=== PATIENT | male | born 1945 | race African-American/Black ===

== ENCOUNTER 2017-05-07 12:37 | Emergency (ER) | payer OTHER, MEDICAID ==
[~2017-05-07] VITALS: Ht 182.9 cm; Wt 90.0 kg
[~2017-05-07 12:37] MED LIST: AMLO2.5T45 PO; ASPI-1159 PO; CLOP75TA33 PO; CYCL10TA7 PO; FERR-63 PO; FINA5TAB11 PO; INSU3INS6 SUBCUT; INSULIN; METF10002 PO; METO25TA6 PO; NAPR-677 PO; OMEP20CA10 PO; SILD20TA PO; SIMV20TA6 PO; TAMS0.4C31 PO
[2017-05-07 14:26] LABS: BASOPHILS % 0.5 % (0.0-2.0); EOSINOPHILS % 1.3 % (0.0-5.0); HEMATOCRIT. 33.7 % (42.0-52.0); LYMPHOCYTES % 13.1 % (20.0-50.0); MEAN CORPUSCULAR VOLUME 85.8 fL (80.0-94.0); MEAN PLATELET VOLUME 8.8 fl (7.4-10.4); MONOCYTES % 4.3 % (2.0-8.0); NEUTROPHILS % 80.8 % (40.0-76.0); PLATELET 199 x1000/uL (130-400); RED BLOOD CELL COUNT 3.92 mill/uL (4.7-6.1); RED CELL DISTRIBUTION WIDTH 13.9 % (11.6-14.6)
[2017-05-07 14:38] LABS: CARBON DIOXIDE 28 mEq/L (21-32); CHLORIDE 103 mEq/L (98-107); ETHANOL BLOOD < 10 mg/dL
[2017-05-07 14:44] LABS: TROPONIN I < 0.02 ng/mL (0.00-0.04)
[2017-05-07 14:46] LABS: CLARITY URINE CLEAR (CLEAR); COLOR URINE YELLOW (YELLOW); GLUCOSE URINE NEGATIVE (NEGATIVE); KETONES URINE NEGATIVE (NEGATIVE); LEUKOCYTE ESTERASE URINE NEGATIVE (NEGATIVE); NITRITE URINE NEGATIVE (NEGATIVE); OCCULT BLOOD URINE NEGATIVE (NEGATIVE); PH URINE 5.5 (4.5-8.0); PROTEIN URINE NEGATIVE (NEGATIVE); SPECIFIC GRAVITY URINE 1.014 (1.005-1.030); UROBILINOGEN URINE 0.2 E.U./dL (0.2-1.0)
[2017-05-07 14:58] LABS: *AMPHETAMINES SCREEN URINE NEGATIVE (NEGATIVE); *BARBITURATES SCREEN URINE NEGATIVE (NEGATIVE); *BENZODIAZEPINES SCREEN URINE NEGATIVE (NEGATIVE); *COCAINE SCREEN URINE NEGATIVE (NEGATIVE); CANNABINOID URINE SCREEN NEGATIVE (NEGATIVE); METHADONE URINE SCREEN NEGATIVE (NEGATIVE); OPIATES URINE SCREEN NEGATIVE (NEGATIVE); PHENCYCLIDINE URINE SCREEN NEGATIVE (NEGATIVE)
[2017-05-07 18:05] VITALS: BP 167/91
== END 2017-05-07 18:14 | disposition home or self-care (01) ==
LOC: ER 12:49
DX: G93.41 Metabolic encephalopathy (principal); E11.9 Type 2 diabetes mellitus without complications; R41.82 Altered mental status, unspecified; D64.9 Anemia, unspecified; I10 Essential (primary) hypertension; Z79.4 Long term (current) use of insulin; Z88.6 Allergy status to analgesic agent; Z79.82 Long term (current) use of aspirin; Z86.73 Personal history of transient ischemic attack (TIA), and cerebral infarction without residual deficits; Z96.649 Presence of unspecified artificial hip joint; Z87.891 Personal history of nicotine dependence
CPT/HCPCS: 36415; 80053; 80305; 81003; 82962; 84484; 85025; 93005; 99285; G0482

== ENCOUNTER 2017-12-12 00:01 | Inpatient (IN) | payer OTHER, MEDICAID ==
[~2017-12-12] VITALS: Ht 182.9 cm; Wt 86.2 kg
[2017-12-12] VITALS (34 sets, daily range): BP systolic 75–190; BP diastolic 54–101
[2017-12-12 00:55] LABS: HEMATOCRIT. 38.3 % (42.0-52.0); HEMOGLOBIN. 12.3 g/dL (14.0-18.0); MEAN CORPUSCULAR HEMOGLOBIN 29.4 pg (28.0-32.0); MEAN CORPUSCULAR VOLUME 91.8 fL (80.0-94.0); MEAN PLATELET VOLUME 9.9 fl (7.4-10.4); PLATELET 259 x1000/uL (130-400); RED BLOOD CELL COUNT 4.17 mill/uL (4.7-6.1); RED CELL DISTRIBUTION WIDTH 14.8 % (11.6-14.6)
[2017-12-12] MEDS ORDERED: SODIUM CHLORIDE 0.9% 1,000 ML IV ONE ×2 (00:59→05:02)
[2017-12-12] MEDS: FAMOTIDINE 20MG/2ML VIAL IV SCH ×2 (01:00→04:54)
[2017-12-12 01:02] LABS: CHLORIDE 93 mEq/L (98-107)
[2017-12-12] MEDS: ONDANSETRON HCL 4MG/2ML VIAL IV SCH ×2 (01:30→04:54)
[2017-12-12 01:33] LABS: PLATELET ESTIMATE NORMAL
[2017-12-12 01:43] LABS: BG BASE EXCESS -14.8 mmol/L (-2.0-2.0); BG CARBOXYHEMOGLOBIN 0.6 % (0.5-1.5); BG DEOXYHEMOGLOBIN 24.2 % (0.0-5.0); BG FRACTION INSPIRED OXYGEN 21; BG HCO3 ACT 9.5 mmol/L (22.0-26.0); BG METHEMOGLOBIN 0.2 % (0.0-1.5); BG OXYGEN SATURATION 75.6 % (92.0-98.5); BG PCO2 20.1 mmHg (35.0-45.0); BG PH 7.293 (7.350-7.450); BG PO2 45.3 mmHg (75.0-100.0); BG SAMPLE SITE RIGHT RADIAL; BG TOTAL HEMOGLOBIN 12.8 g/dL (12.0-18.0); BG VENT MODE ROOM AIR
[2017-12-12 01:57] LABS: BETA HYDROXYBUTYRATE > 10.0 mMol/L (0.0-0.3)
[2017-12-12] MEDS ORDERED: INSULIN REGULAR (DRIP) 100 UNITS in SODIUM CHLORIDE 0.9% 100 ML IV ONE ×2 (02:30→06:15)
[2017-12-12 02:53] LABS: CHLORIDE 93 mEq/L (98-107)
[2017-12-12 02:59] LABS: PHOSPHORUS 7.7 mg/dL (2.5-4.9)
[2017-12-12 03:41] LABS: CLARITY URINE CLEAR (CLEAR); COLOR URINE YELLOW (YELLOW); KETONES URINE 4+ (NEGATIVE); LEUKOCYTE ESTERASE URINE NEGATIVE (NEGATIVE); NITRITE URINE NEGATIVE (NEGATIVE); OCCULT BLOOD URINE NEGATIVE (NEGATIVE); PROTEIN URINE NEGATIVE (NEGATIVE); SPECIFIC GRAVITY URINE 1.026 (1.005-1.030); UROBILINOGEN URINE 0.2 E.U./dL (0.2-1.0)
[2017-12-12 04:15] LABS: CHLORIDE 94 mEq/L (98-107)
[2017-12-12] MEDS ORDERED: HYDROMORPHONE HCL/PF 2MG/ML CPJ IV PRN ×2 (06:15→06:45)
[2017-12-12] MEDS ORDERED: ONDANSETRON HCL 4MG/2ML VIAL IV PRN (06:15)
[2017-12-12] MEDS ORDERED: DIPHENHYDRAMINE 50MG/ML VIAL IV PRN (06:15)
[2017-12-12] MEDS: BLOOD SUGAR DIAGNOSTIC STRIP TEST SCH ×12 (06:45→20:45)
[2017-12-12] MEDS: SODIUM CHLORIDE 0.45% 1,000 ML IV SCH ×3 (06:45→23:53)
[2017-12-12] MEDS ORDERED: INSULIN REGULAR (DRIP) 100 UNITS in SODIUM CHLORIDE 0.9% 100 ML IV SCH (06:47)
[2017-12-12] MEDS ORDERED: DEXTROSE 50% WATER 50ML SYRINGE IV PRN ×3 (07:00→16:15)
[2017-12-12] MEDS: HYDROMORPHONE HCL/PF 2MG/ML CPJ IV PRN ×2 (07:05→20:35)
[2017-12-12] MEDS: ENOXAPARIN 40MG/0.4ML SYR SUBCUT SCH (08:59)
[2017-12-12] MEDS: PANTOPRAZOLE SODIUM 40 MG/VIAL IV SCH (08:59)
[2017-12-12 09:28] LABS: CHLORIDE 106 mEq/L (98-107)
[2017-12-12] MEDS: CLONIDINE 0.1MG TABLET PO PRN ×2 (10:34→20:58)
[2017-12-12] MEDS: AMLODIPINE 10MG TABLET PO SCH (12:09)
[2017-12-12 15:18] LABS: CHLORIDE 108 mEq/L (98-107)
[2017-12-12 15:24] LABS: PHOSPHORUS 2.7 mg/dL (2.5-4.9)
[2017-12-12] MEDS: METOPROLOL TARTRATE 25MG TABLET PO SCH ×2 (16:18→20:38)
[2017-12-12] MEDS: INSULIN LISPRO 100 UNITS/ML SUBCUT SCH ×2 (16:39→21:04)
[2017-12-12 16:55] LABS: *AMPHETAMINES SCREEN URINE NEGATIVE (NEGATIVE); *BARBITURATES SCREEN URINE NEGATIVE (NEGATIVE); *BENZODIAZEPINES SCREEN URINE NEGATIVE (NEGATIVE); *COCAINE SCREEN URINE NEGATIVE (NEGATIVE); METHADONE URINE SCREEN NEGATIVE (NEGATIVE); OPIATES URINE SCREEN NEGATIVE (NEGATIVE)
[2017-12-12 16:56] LABS: CANNABINOID URINE SCREEN PRESUMTIVE POSITIVE (NEGATIVE); PHENCYCLIDINE URINE SCREEN NEGATIVE (NEGATIVE)
[2017-12-12] MEDS ORDERED: INSULIN GLARGINE UD 100 UNITS/ML SYR SUBCUT SCH (22:00)
[2017-12-13] VITALS (37 sets, daily range): BP systolic 98–180; BP diastolic 50–99
[2017-12-13] MEDS: CLONIDINE 0.1MG TABLET PO PRN ×2 (03:09→17:46)
[2017-12-13 05:43] LABS: HEMATOCRIT 34.9 % (42.0-52.0); HEMOGLOBIN 11.5 g/dL (14.0-18.0); MEAN CORPUSCULAR VOLUME 87.6 fL (80.0-94.0); PLATELET 263 x1000/uL (130-400); RED BLOOD CELL COUNT 3.98 mill/uL (4.7-6.1); RED CELL DISTRIBUTION WIDTH 14.4 % (11.6-14.6)
[2017-12-13 05:55] LABS: CHLORIDE 104 mEq/L (98-107)
[2017-12-13] MEDS: BLOOD SUGAR DIAGNOSTIC STRIP TEST SCH ×3 (06:36→16:28)
[2017-12-13] MEDS: INSULIN LISPRO 100 UNITS/ML SUBCUT SCH ×3 (06:42→17:46)
[2017-12-13] MEDS: AMLODIPINE 10MG TABLET PO SCH (08:16)
[2017-12-13] MEDS: PANTOPRAZOLE SODIUM 40 MG/VIAL IV SCH (08:16)
[2017-12-13] MEDS: METOPROLOL TARTRATE 25MG TABLET PO SCH (08:16)
[2017-12-13] MEDS: SODIUM CHLORIDE 0.45% 1,000 ML IV SCH (08:16)
[2017-12-13] MEDS: ENOXAPARIN 40MG/0.4ML SYR SUBCUT SCH (08:17)
[2017-12-13 11:51] LABS: T4 FREE 1.4 ng/dL (0.76-1.46)
[2017-12-13 12:50] LABS: INR 1.1; PARTIAL THROMBOPLASTIN TIME 27.6 sec (23.4-31.0)
[2017-12-13] MEDS ORDERED: INSULIN GLARGINE UD 100 UNITS/ML SYR SUBCUT SCH (14:00)
[2017-12-13] MEDS ORDERED: ASPIRIN 81MG TABLET PO SCH (17:30)
[2017-12-13] MEDS ORDERED: CLOPIDOGREL 75MG TABLET PO SCH (20:15)
[2017-12-13] MEDS ORDERED: ATORVASTATIN CALCIUM 10MG TABLET PO SCH (21:00)
== END 2017-12-13 20:55 | disposition short-term general hospital (02) | DRG 64 ==
LOC: ER 00:01 → MICUSO 02:03 → EDBEDREQSVC 02:09 → EDBEDREQ 02:09 → EDBEDREQTM 02:09 → ENRESERV 04:05
PROVIDERS: ADMIT Internal Medicine; ATTEND Internal Medicine
DX: I63.9 Cerebral infarction, unspecified (principal); E11.10 Type 2 diabetes mellitus with ketoacidosis without coma; G93.41 Metabolic encephalopathy; E86.0 Dehydration; D72.829 Elevated white blood cell count, unspecified; E78.00 Pure hypercholesterolemia, unspecified; E78.5 Hyperlipidemia, unspecified; F10.21 Alcohol dependence, in remission; Z96.649 Presence of unspecified artificial hip joint; G89.4 Chronic pain syndrome; I10 Essential (primary) hypertension; Z79.02 Long term (current) use of antithrombotics/antiplatelets; Z79.82 Long term (current) use of aspirin; Z79.84 Long term (current) use of oral hypoglycemic drugs; Z79.899 Other long term (current) drug therapy; Z87.891 Personal history of nicotine dependence; Z88.8 Allergy status to other drugs, medicaments and biological substances
CPT/HCPCS: 36415; 36600; 70450; 70551; 71045; 74176; 80048; 80053; 80061; 80305; 81003; 82010; 82375; 82805; 82962; 83036; 83605; 83690; 83735; 84100; 84439; 84443; 85025; 85027; 85610; 85730; 93005; 93970; 96374; 96375; 99291; C9113; J1170; J1650; J1815; J2405; J3490; J7030; J7050

== ENCOUNTER 2019-02-06 11:37 | Emergency (ER) | payer OTHER, MEDICAID ==
[~2019-02-06] VITALS: Ht 185.4 cm; Wt 89.0 kg
[~2019-02-06 11:37] MED LIST changes: -ASPI-1159 PO; +ASPI-1393 PO; +METF-416 PO; -METF10002 PO; -OMEP20CA10 PO; +OMEP20CA5 PO
[2019-02-06] MEDS ORDERED: SODIUM CHLORIDE 0.9% 1,000 ML IV ONE (12:13)
[2019-02-06 12:33] LABS: BASOPHILS % 0.7 % (0.0-2.0); EOSINOPHILS % 0.7 % (0.0-5.0); HEMATOCRIT. 34.2 % (42.0-52.0); HEMOGLOBIN. 11.4 g/dL (14.0-18.0); MEAN CORPUSCULAR HEMOGLOBIN 28.7 pg (28.0-32.0); MEAN CORPUSCULAR VOLUME 86.1 fL (80.0-94.0); MEAN PLATELET VOLUME 9.3 fl (7.4-10.4); MONOCYTES % 5.9 % (2.0-8.0); NEUTROPHILS % 84.7 % (40.0-76.0); PLATELET 282 x1000/uL (130-400); RED BLOOD CELL COUNT 3.97 mill/uL (4.7-6.1); RED CELL DISTRIBUTION WIDTH 13.6 % (11.6-14.6)
[2019-02-06 12:38] LABS: CHLORIDE 102 mEq/L (98-107)
[2019-02-06 12:51] LABS: PROTHROMBIN TIME 10.6 sec (9.6-11.0)
[2019-02-06] MEDS ORDERED: AMLODIPINE 5MG TABLET PO ONE (17:45)
[2019-02-06] MEDS ORDERED: METOPROLOL TARTRATE 25MG TABLET PO ONE (17:45)
[2019-02-06] MEDS ORDERED: CLONIDINE 0.2MG TABLET PO ONE (21:15)
[2019-02-06 23:37] VITALS: BP 123/73
== END 2019-02-07 00:06 | disposition short-term general hospital (02) ==
LOC: ER 11:37
DX: R55 Syncope and collapse (principal); R42 Dizziness and giddiness; E11.9 Type 2 diabetes mellitus without complications; I10 Essential (primary) hypertension; E78.00 Pure hypercholesterolemia, unspecified; Z79.4 Long term (current) use of insulin; Z88.6 Allergy status to analgesic agent
CPT/HCPCS: 36415; 71045; 80053; 82962; 83880; 84484; 85025; 85610; 93005; 96360; 99284; J7030

== ENCOUNTER 2019-04-01 16:46 | Emergency (ER) | payer OTHER, MEDICAID ==
[~2019-04-01] VITALS: Ht 180.3 cm; Wt 77.0 kg
[2019-04-01 17:34] LABS: BASOPHILS % 1.2 % (0.0-2.0); EOSINOPHILS % 3.9 % (0.0-5.0); HEMOGLOBIN. 10.4 g/dL (14.0-18.0); LYMPHOCYTES % 28.7 % (20.0-50.0); MEAN CORPUSCULAR HEMOGLOBIN 28.3 pg (28.0-32.0); MEAN CORPUSCULAR VOLUME 86.8 fL (80.0-94.0); MEAN PLATELET VOLUME 8.3 fl (7.4-10.4); MONOCYTES % 7.2 % (2.0-8.0); PLATELET 245 x1000/uL (130-400); RED BLOOD CELL COUNT 3.68 mill/uL (4.7-6.1); RED CELL DISTRIBUTION WIDTH 15.6 % (11.6-14.6)
[2019-04-01 17:40] LABS: CHLORIDE 106 mEq/L (98-107)
[2019-04-01 18:59] VITALS: BP 115/93
== END 2019-04-01 19:25 | disposition home or self-care (01) ==
LOC: ER 16:46
DX: T38.3X1A Poisoning by insulin and oral hypoglycemic [antidiabetic] drugs, accidental (unintentional), initial encounter (principal); E11.65 Type 2 diabetes mellitus with hyperglycemia; D64.9 Anemia, unspecified; Y92.018 Other place in single-family (private) house as the place of occurrence of the external cause; Z79.4 Long term (current) use of insulin; Z79.899 Other long term (current) drug therapy
CPT/HCPCS: 36415; 82962; 93005; 99284